=== PATIENT | male | born 1955 | race Caucasian/White ===

== ENCOUNTER → 2020-09-10 | Outpatient (CLI) | payer MEDICARE, OTHER | LOC: GMA CAST 16:46 | PROVIDERS: ATTEND Family Medicine Sports Medicine | DX: R20.0 Anesthesia of skin (principal); G60.3 Idiopathic progressive neuropathy ==

== ENCOUNTER 2020-09-30 07:00 | Day surgery (SDC) | payer MEDICARE, OTHER ==
--- NOTE | 2020-09-29 14:12 | RAD ---
EXAM DESCRIPTION: Chest,2 Views CLINICAL HISTORY: 64 years Male, PREOP DR BRUCE COMPARISON: None. IMPRESSION: Heart size and pulmonary vascularity are within normal limits. There is no airspace consolidation, pleural effusion, or pneumothorax. No acute osseous abnormality. Electronically signed by: Jarad Owens MD 09/29/2020 2:11 PM [facility]
[~2020-09-30 07:00] MED LIST: LACTATED RINGERS 1,000 ML ONE
[2020-09-30] MEDS ORDERED: DEXAMETHASONE INJ 10 MG/ML VIAL IV ONE (07:01)
[2020-09-30] MEDS ORDERED: PROPOFOL 200 MG/20 ML VIAL IV ONE (07:01)
[2020-09-30] MEDS ORDERED: MAGNESIUM SULFATE INJ 1 GM/2 ML VIAL IVPB ONE (07:01)
[2020-09-30] MEDS ORDERED: LIDOCAINE 1% 10 ML VIAL INJ ONE (07:01)
[2020-09-30] MEDS ORDERED: BUPIVACAINE 0.25% W/EPI 50 ML VIAL INJ ONE ×2 (07:07→08:19)
[2020-09-30] MEDS ORDERED: DEXMEDETOMIDINE HCL 200 MCG/2 ML INJ IV ONE (08:14)
[2020-09-30] MEDS ORDERED: FAMOTIDINE INJ 10 MG/ML VIAL IV ONE (08:15)
[2020-09-30] MEDS ORDERED: fentaNYL CITRATE INJ 50 MCG/ML 2 ML AMP IV ONE (08:15)
[2020-09-30] MEDS ORDERED: MIDAZOLAM INJ 2 MG/2 ML VIAL IV ONE (08:15)
[2020-09-30] MEDS ORDERED: KETAMINE HCL 100 MG/ML VIAL IV ONE (08:15)
--- NOTE | 2020-09-30 09:59 | OP ---
DATE OF PROCEDURE: 09/30/20 PREOPERATIVE DIAGNOSIS: 1. Right inguinal hernia. POSTOPERATIVE DIAGNOSIS: 1. Right inguinal hernia. PROCEDURE: 1. Repair of right inguinal hernia with Prolene mesh. SURGEON: Dhaavl Perez MD. RN FIRST ASSISTANT: None. ANESTHESIA: Local infiltration of 0.25% Marcaine with epinephrine and laryngeal mask anesthesia. INDICATION: The patient is a 64-year-old male who has had a right inguinal hernia for some time. He has become more uncomfortable and he wishes to have repair. The patient was brought to the Surgical Suite today for hernia repair after the risks, benefits and alternatives to the procedure were discussed and accepted. FINDINGS: The patient had a large direct inguinal hernia with no sliding component, no indirect component. PROCEDURE: After adequate general anesthesia was obtained, the patient was prepped and draped in the usual sterile manner. At this point, a surgical time- out was taken. An oblique incision was fashioned in the right groin, first with infiltration of local anesthesia, then with a sharp knife. Dissection was carried down through the skin and subcutaneous tissue to the external oblique fascia using electrocautery and blunt dissection. The self-retaining retractor was placed at this level. The external oblique fascia was then opened in the direction of the fibers through the external inguinal ring. This was dissected free from the floor of the canal and the retractor was placed at this level. The cord was then dissected free from the floor of the canal and the hernia sac using blunt dissection and electrocautery. A Diego drain was placed around the cord for traction. When this was done, the hernia sac was opened and it was reduced and the back of the floor was dissected free using blunt dissection. When this was done, a sponge stick was placed to reduce the contents and the Prolene mesh was introduced and flattened under the floor of the canal. The top layer was then trimmed for the size of the canal. It was sutured at the pubic tubercle and then sutured laterally after a cut was made to allow for the spermatic cord. When this was done, it was noted to be lying flat. The wound was irrigated with saline. Hemostasis was noted to be adequate. The cord was placed back in position in the canal. When this was done, the external oblique fascia was closed with running 3-0 Vicryl suture. The cord and subcutaneous tissue above, below and lateral to the incision were infiltrated with local anesthesia. The Stefany's fascia was approximated with interrupted 3-0 Chromic suture. Skin edges were approximated with skin stapler. Sterile pressure dressing was applied. The testicle was checked for position in the scrotum. The patient was awakened and taken to the Recovery Room in stable condition. Estimated blood loss was less than 50 mL. #[id number] MTDD
[2020-09-30 11:19] VITALS: BP 128/91; TEMP 96.9; O2SAT 97
== END 2020-09-30 11:00 | disposition home or self-care (01) ==
LOC: AMB 07:00
PROVIDERS: ATTEND Surgery
DX: K40.90 Unilateral inguinal hernia, without obstruction or gangrene, not specified as recurrent (principal); M19.90 Unspecified osteoarthritis, unspecified site; Z79.899 Other long term (current) drug therapy
CPT/HCPCS: 00830; 36415; 49505; 71046; 80053; 81001; 85025; J1100; J2250; J3010; J3475; J3490; J7120

== ENCOUNTER → 2020-11-25 | Outpatient (CLI) | payer MEDICARE, OTHER | LOC: LAB.O 15:52 | PROVIDERS: ATTEND Orthopaedic Surgery | DX: Z01.818 Encounter for other preprocedural examination (principal) ==

== ENCOUNTER 2020-12-03 06:00 | Day surgery (SDC) | payer MEDICARE, OTHER ==
[2020-12-03] MEDS ORDERED: SODIUM CHL 0.9% 100ML MINI-BAG 100 ML IVPB ONE (06:31)
[2020-12-03] MEDS ORDERED: LACTATED RINGERS 1,000 ML ONE (06:31)
[2020-12-03] MEDS ORDERED: ceFAZolin SODIUM 1 GM VIAL ONE (06:31)
[2020-12-03] MEDS ORDERED: MAGNESIUM SULFATE INJ 1 GM/2 ML VIAL ONE (07:00)
[2020-12-03] MEDS ORDERED: LIDOCAINE 1% 10 ML VIAL INJ ONE ×2 (07:00→12:55)
[2020-12-03] MEDS ORDERED: DEXAMETHASONE INJ 10 MG/ML VIAL ONE (07:00)
[2020-12-03] MEDS ORDERED: PROPOFOL 200 MG/20 ML VIAL IV ONE (07:00)
[2020-12-03] MEDS ORDERED: BUPIVACAINE 0.25% INJ 30 ML VIAL INJ ONE (12:56)
[2020-12-03] MEDS ORDERED: MIDAZOLAM INJ 2 MG/2 ML VIAL ONE (13:02)
[2020-12-03] MEDS: ceFAZolin SODIUM 1 GM VIAL ONE ×2 (14:24→15:40)
[2020-12-03] MEDS: VANCOMYCIN HCL INJ 1,000 MG VIAL IVPB ONE ×2 (14:26→15:40)
[2020-12-03] MEDS: BUPIVACAINE LIPOSOME 13.3 MG/ML VIAL INJ ONE ×2 (15:36→15:40)
[2020-12-03] MEDS: BUPIVACAINE 0.5% 30 ML VIAL INJ ONE ×2 (15:37→15:40)
[2020-12-03 17:24] VITALS: BP 133/86; TEMP 97.7; O2SAT 96
--- NOTE | 2020-12-30 09:55 | OP ---
DATE OF PROCEDURE: 12/03/20 PREOPERATIVE DIAGNOSIS: 1. Left carpal tunnel syndrome. 2. Left cubital tunnel syndrome. POSTOPERATIVE DIAGNOSIS: 1. Left carpal tunnel syndrome. 2. Left cubital tunnel syndrome. PROCEDURE: 1. Carpal tunnel release. 2. Ulnar nerve transposition. SURGEON: James Jordan MD. MEDIA MARKETING SPECIALIST: Manolo Garcia CST, SA-C. ANESTHESIA: General anesthesia. COMPLICATIONS: None. FINDINGS: 1. Compression of the median nerve across the carpal tunnel with thickening of the transverse carpal ligament. 2. Compression of the ulnar nerve across the cubital tunnel. INDICATION: Mr. Godoy has a history of symptoms consistent with carpal tunnel syndrome and cubital tunnel syndrome. Because of his symptoms and failure to gain relief with conservative measures, he requested operative intervention. After discussing the risks, benefits and alternatives to operative intervention, the patient gave informed consent for the aforementioned procedure. PROCEDURE: The patient was brought to the Operating Room and placed in the supine position. General anesthesia was induced and the patients arm was sterilely prepped and draped. An incision was made directly over the transverse carpal ligament and blunt dissection was carried down to the ligament. The ligament was sharply incised and a freer elevator was passed both proximally and distally to ensure complete release. The wound was thoroughly irrigated and closed with nylon suture. The hand was wrapped and attention was then focused on the ulnar nerve. An incision was made midway between the medial epicondyle and the olecranon. Dissection was then carried down to the fascial layer and the ulnar nerve was identified proximally. A vessel loop was passed around the nerve and used to manipulate the nerve atraumatically as it was dissected free of adhesions from proximal to distal. The nerve was mobilized from the cubital tunnel and the tissues medial to the medial epicondyle were elevated. The nerve was transposed medial to the epicondyle and the subcutaneous tissues were sewn to the periosteum of the medial epicondyle. Care was taken to ensure the nerve remained free of adhesion or entrapment within the suture. The wound was very thoroughly irrigated and closed with a combination of interrupted and subcuticular stitches. Sterile dressings and a sling were placed on the patient and the patient was awoken from anesthesia. The patient was taken to the Recovery Room in stable condition. POSTOPERATIVE PLAN: The patient has been encouraged to do range of motion of the digits and will followup with us in two days. #[id number] MTDD
== END 2020-12-03 17:14 | disposition home or self-care (01) ==
LOC: AMB 06:00
PROVIDERS: ATTEND Orthopaedic Surgery
DX: G56.02 Carpal tunnel syndrome, left upper limb (principal); G56.22 Lesion of ulnar nerve, left upper limb; M10.9 Gout, unspecified; Z82.49 Family history of ischemic heart disease and other diseases of the circulatory system; Z80.8 Family history of malignant neoplasm of other organs or systems
CPT/HCPCS: 01810; 64718; 64721; 80307; J0690; J1100; J2250; J3370; J3475; J3490; J7050; J7120